=== PATIENT | male | born 2000 | race Caucasian/White ===

== ENCOUNTER 2023-07-07 02:28 | Emergency (ER) | payer BC, SELFPAY ==
--- NOTE | ~2023-07-07 | CT_ITS ---
EXAMINATION: CT abdomen pelvis wo con DATE: 07/07/2023 03:45 INDICATION: Flank pain. TECHNIQUE: Computed tomography (CT) of the abdomen and pelvis was performed without intravenous contr ast. Automated exposure control and iterative reconstruction technique were employed. The dose-length product was 644.57 mGy-cm. COMPARISON: None. FINDINGS: The visualized portions of the lung bases are clear without pneumonia or pleural effusion. The heart size is normal. No pericardial effusion. The liver, gallbladder, spleen, pancreas, and adre nal glands are normal. There is a 4 mm stone in right kidney. There is a 5 mm stone in left kidney. T here is a 14 mm mass of fat in left kidney, consistent with an angiomyolipoma. There are no dilated l oops of bowel. The appendix is not visualized. There are no pathologically enlarged lymph nodes. Ther e is no free intraperitoneal fluid. There is a left-sided inferior vena cava. There is mild chronic a nterior wedging of multiple thoracic vertebral bodies. IMPRESSION: 1. Bilateral nonobstructing kidney stones. Reviewed, dictated and finalized at location E. MENT CONTROL MANAGER
[2023-07-07 02:34] VITALS: BP 145/86; PULSE 106; RESP 18; TEMP 36.7; O2SAT 100
--- NOTE | 2023-07-07 02:46 | ECG_ITS ---
Measurements Intervals [place] Rate: 92 P: 67 IA: 147 QRS: 44 QRSD: 89 T: 33 QT: 332 QTc: 413 Interpretive Statements SINUS RHYTHM BORDERLINE ST-T WAVE ABNORMALITY- INF/LAT LEADS BORDERLINE ECG NO PREVIOUS ECG AVAILABLE FOR COMPARISON Electronically Signed On 07-08-2023 11:59:27 HOSPICE PATIENT CARE SECRETARY by Ricci Iglesias D.O.
[2023-07-07 03:04] LABS: Appearance Urine Cloudy (Clear); Bacteria Urine None Seen /hpf; Bilirubin Urine Negative (Negative); Color Urine Yellow (Yellow); Glucose Urine UA Negative (Negative); Ketones Urine Negative (Negative); Leukocyte Esterase Ur Negative LEU/UL (Negative); Nitrate Urine Negative (Negative); Non Pathogenic Casts 0-2; Protein Urine Negative (Negative); Squamous Epithelial Cell Urine None seen /hpf (Few); WBC Urine 0-5 /hpf; pH Urine 6.5 (5.0-9.0)
[2023-07-07 03:16] LABS: Add Urine Microscopic? YES
[2023-07-07 04:10] VITALS: BP 160/85; PULSE 84; RESP 18; O2SAT 100
[2023-07-07 04:54] LABS: Basophils Percent Auto 0.2 % (0.2-1.2); Eosinophils Absolute Auto 0.1 K/mm3 (0-0.3); Eosinophils Percent Auto 0.4 % (0-4.4); Hematocrit 42.7 % (42.0-52.0); Hemoglobin 14.6 g/dL (14.0-18.0); Immature Granulocyte Absolute 0.08 K/mm3 (0.00-0.031); Immature Granulocyte Percent A 0.5 % (0-0.5); Lymphocytes Absolute Auto 1.32 K/mm3 (0.9-3.2); Lymphocytes Percent Auto 8.2 % (18.3-44.2); Mean Corpuscular HGB Conc 34.2 g/dl (32-36); Mean Corpuscular Hemoglobin 31.7 pg (26-34); Mean Corpuscular Volume 92.6 fl (80-100); Mean Platelet Volume 11.6 fl (7.4-10.4); Monocytes Absolute Auto 1.2 K/mm3 (0.1-0.6); Monocytes Percent Auto 7.2 % (2.6-8.5); Neutrophils Absolute Auto 13.5 K/mm3 (1.3-6.7); Neutrophils Percent Auto 83.5 % (45.5-73.1); Platelet Count Result 214 k/mm3 (150-375); Red Blood Count 4.61 M/mm3 (4.6-6.20); Red Cell Distribution Width 11.7 % (11.5-14.5); White Blood Count 16.2 K/mm3 (4.5-10.0)
[2023-07-07 05:03] LABS: Alanine Aminotransferase 20 U/L (6-50); Albumin Level 4.3 g/dL (3.5-5.1); Alkaline Phosphatase 80 U/L (38-126); Anion Gap 9 mmol/L (8-16); Aspartate Amino Transferase 25 U/L (17-59); Bilirubin,Total 0.6 mg/dL (0.2-1.3); Blood Urea Nitrogen 10 mg/dL (9-20); Calcium 9.4 mg/dL (8.4-10.2); Carbon Dioxide 26 mmol/L (22-30); Chloride 104 mmol/L (98-107); Estimated CRCL calculation 149 ml/min; Estimated Glomerular Filt Rate > 60; Glucose 104 mg/dL (65-110); Lipase 108 U/L (23-300); Potassium 3.4 mmol/L (3.4-5.0); Sodium 139 mmol/L (137-145)
--- NOTE | 2023-07-07 06:20 | ED.GENADULT ---
HPI - General Adult General Chief complaint: Anxiety Stated complaint: panic attack, tingly all over Time Seen by Provider: 07/07/23 03:01 History of Present Illness HPI narrative: Patient 22-year-old gentleman who presents emerged department with chief complaint of anxiety and discomfort with urination. The patient states that he has noticed there is some sediment in his urine whenever he goes patient also reports has had some discomfort in his abdomen. The patient denies penile discharge patient denies fever patient does report been feeling very anxious lately patient denies suicidal or homicidal ideation. Related Data Allergies Allergy/AdvReac Type Severity Reaction Status Date / Time No Known Allergies Allergy Verified 07/07/23 04:12 Review of Systems Review of Systems: A 10 system review of systems was completed on the patient and is negative except for what is stated in the HPI. Nursing and ancillary documentation was reviewed. Exam Narrative: GENERAL: Well-appearing, well-nourished, and in no acute distress. HEAD: Normocephalic, atraumatic. EYES: PERRLA and EOMI. ENT: Nares clear, no rhinorrhea or epistaxis. Mucous membranes moist. NECK: Supple. CHEST: Clear to auscultation. No respiratory distress. HEART: Regular rate and rhythm. No murmur heard. Normal peripheral pulses. ABDOMEN: Soft, nontender, nondistended, normal active bowel sounds. EXTREMITIES: Normal range of motion. No edema. SKIN: Warm, dry, no rash. NEURO: No focal deficits. Alert and oriented x3. PSYCH: Normal mood and affect. Course Vital Signs Vital signs: Vital Signs Temperature 36.7 C 07/07/23 02:34 Pulse Rate 106 H 07/07/23 02:34 Respiratory Rate 18 07/07/23 02:34 Blood Pressure 145/86 H 07/07/23 02:34 Pulse Oximetry 100 07/07/23 02:34 Oxygen Delivery Room Air 07/07/23 02:34 Temperature 36.7 C 07/07/23 02:34 Pulse Rate 84 07/07/23 04:10 Respiratory Rate 18 07/07/23 04:10 Blood Pressure 160/85 H 07/07/23 04:10 Pulse Oximetry 100 07/07/23 04:10 Oxygen Delivery Room Air 07/07/23 02:34 Medical Decision Making [facility] Narrative Medical decision making narrative: Differential diagnosis includes anxiety, UTI, kidney stone, Laboratory studies were obtained and the patient showed a normal CBC normal CMP urinalysis showed 3-5 red blood cells in the urine no evidence of UTI CT scan of the abdomen pelvis showed no evidence of acute abnormality other than nonobstructing stones in bilateral kidneys. Vital Signs Vital Signs: Vital Signs Temperature 36.7 C 07/07/23 02:34 Pulse Rate 106 H 07/07/23 02:34 Respiratory Rate 18 07/07/23 02:34 Blood Pressure 145/86 H 07/07/23 02:34 Pulse Oximetry 100 07/07/23 02:34 Oxygen Delivery Room Air 07/07/23 02:34 Temperature 36.7 C 07/07/23 02:34 Pulse Rate 84 07/07/23 04:10 Respiratory Rate 18 07/07/23 04:10 Blood Pressure 160/85 H 07/07/23 04:10 Pulse Oximetry 100 07/07/23 04:10 Oxygen Delivery Room Air 07/07/23 02:34 Lab Data 07/07/23 04:48 07/07/23 04:47 Labs: Lab Results 07/07/23 07/07/23 07/07/23 Range/Units 02:45 04:47 04:48 WBC 16.2 H (4.5-10.0) K/mm3 RBC 4.61 (4.6-6.20) M/mm3 Hgb 14.6 (14.0-18.0) g/dL Hct 42.7 (42.0-52.0) % MCV 92.6 (80-100) fl MCH 31.7 (26-34) pg MCHC 34.2 (32-36) g/dl RDW 11.7 (11.5-14.5) % Plt Count 214 (150-375) k/mm3 MPV 11.6 H (7.4-10.4) fl Immature Gran % (Auto) 0.5 (0-0.5) % Neut % (Auto) 83.5 H (45.5-73.1) % Lymph % (Auto) 8.2 L (18.3-44.2) % [place] % (Auto) 7.2 (2.6-8.5) % Eos % (Auto) 0.4 (0-4.4) % Baso % (Auto) 0.2 (0.2-1.2) % Lymph # (Auto) 1.32 (0.9-3.2) K/mm3 [place] # (Auto) 1.2 H (0.1-0.6) K/mm3 Eos # (Auto) 0.1 (0-0.3) K/mm3 Baso # (Auto) 0.0 (0.0-0.1) K/mm3 Abs Immat Gran (auto) 0.08 H (0.00-0.031) K/mm3 Absolute Neuts
== END 2023-07-07 06:48 | disposition home or self-care (01) ==
PROVIDERS: Emergency Provider Emergency Medicine
DX: R10.9 Unspecified abdominal pain (principal); F41.9 Anxiety disorder, unspecified
CPT/HCPCS: 36415; 74176; 80053; 81001; 83690; 85025; 93005; 99284